=== PATIENT | male | born 1950 | race Caucasian/White ===

== ENCOUNTER → 2020-07-24 | Outpatient (CLI) | payer MEDICARE ==
--- NOTE | 2020-07-25 08:58 | RAD ---
EXAMINATION: XR EXAM OF ANKLE_LEFT 3V CLINICAL HISTORY: Follow-up left ankle pain status post ORIF TECHNIQUE: XR EXAM OF ANKLE_LEFT 3V Number of Images/Views: 3 COMPARISON: 07/09/2020, 06/12/2020 FINDINGS: Intact lateral plate and screw fixation hardware along the distal fibula. Intact medial plate and scr ew fixation hardware along the distal tibia with K wire through the medial malleolus. No evidence of acute hardware complication. Interval removal of all but one skin closure staple which remains along the lateral ankle. Decreased lucency along the lateral malleolus or fracture plane. Increased callus formation posterior ly which may be related to the lateral and posterior malleolar fractures. Slightly increased perioste al reaction along the medial malleolar fracture. Previously questioned tibiotalar joint body is not d efinitively visualized on this exam. No new acute fracture. Mildly increased soft tissue swelling. Remainder of the study otherwise unchanged. IMPRESSION: Healing trimalleolar fracture left ankle status post ORIF. No evidence of hardware complication. Electronically signed by: Edwin Freeman DO (07/25/2020 8:56 AM) [id number]
== END ==
LOC: DXRAD 14:35
PROVIDERS: ATTEND Physician Assistant
DX: S82.852A Displaced trimalleolar fracture of left lower leg, initial encounter for closed fracture (principal); X58.XXXA Exposure to other specified factors, initial encounter; Y93.89 Activity, other specified; Y92.89 Other specified places as the place of occurrence of the external cause; Y99.8 Other external cause status; Z98.890 Other specified postprocedural states
CPT/HCPCS: 73610

== ENCOUNTER 2021-03-27 17:18 | Emergency (ER) | payer MEDICARE ==
[~2021-03-27] VITALS: Ht 170.2 cm; Wt 65.0 kg
--- NOTE | 2021-03-27 17:26 | PHYS DOC ---
Adult General HPI HPI Patient is a 70-year-old male [facility]ation. Patient's last known normal was 1530 hrs. Patient was subsequently found by [facility] staff at 1430 hrs. and was not responding to verbal or painful stimulation prompting them to call EMS. On arrival, patient found to be hypertensive otherwise hemodynamically stable. He was not communicating with EMS and so, patient transferred to our facility emergently for code stroke. Little is known about patient besides fact that he is a noninsulin-dependent type II diabetic. It is unknown if he takes any blood thinners or other high risk/pertinent medications. Is unknown if he has ever had a stroke in the past. He is currently on the Covid waiting of the [facility]ci as he tested positive March 23. Paperwork accompanying patient from [facility] shows that he was admitted for left fibula fracture. He has past medical history of high blood pressure, hyperlipidemia, BPH, generalized muscle weakness, urinary retention and noninsulin-dependent type 2 diabetes. He is full CODE STATUS (ANDREW LAW DO) Review of Systems Review of Systems Unable to obtain due to mentation of patient (ANDREW LAW DO) Physical Exam Physical Exam Constitutional: Age-appropriate but patient is nonresponsive with GCS 5, ill-appearing HEENT: Head: Normocephalic and atraumatic. TMs clear, no hemotympanum Conjunctivae and EOM are normal. Pupils are equal, round, and reactive to light. Oropharynx is clear and moist. No hematomas or lacerations or abrasions to face or scalp OP clear, no blood, no malocclusion, dentition intact Nares clear, no nasal septal hematoma Midface stable Neck: C-spine midline nontender, no step-offs Cardiovascular: Tachycardic rate, regular rhythm and normal heart sounds. Pulmonary/Chest: Effort normal and breath sounds normal. No respiratory distress. No wheezes. CTA bilaterally Abdominal: Soft. Bowel sounds are normal. Pt exhibits no distension. There is no tenderness. Musculoskeletal: No bony tenderness to extremities, no deformities, full ROM extremities Chest wall stable Pelvis stable and non-tender No vertebral TTP and spine without stepoffs Patient does have soft surgical boot present to left lower extremity with underlying Farhad bandage wrapped from recent orthopedic surgery performed at Neurological: Pt is alert and but not oriented to person place or time which is not his baseline as patient typically performs all ADLs by himself Moving all extremities but nonpurposeful and does not follow commands, able to wiggle all fingers and toes Motor and sensory function grossly intact No obvious neurologic deficits Nonresponsive to verbal or painful stimuli Skin: Skin is warm and dry. No abrasions, no lacerations Psychiatric: Unable to fully assess due to acute mentation change (ANDREW LAW DO) Current Patient Data Vital Signs Vital Signs Date Time Temp Pulse Resp B/P (MAP) Pulse Ox O2 Delivery O2 Flow Rate FiO2 03/27/21 17:41 100 Ventilator 03/27/21 18:17 98.3 130 12 202/103 (136) Vital Signs Date Time Temp Pulse Resp B/P (MAP) Pulse Ox O2 Delivery O2 Flow Rate FiO2 03/27/21 20:39 84 26 102/59 (73) 100 Ventilator 03/27/21 18:17 98.3 Lab Results Laboratory Tests Test 03/27/21 17:32 03/27/21 17:43 03/27/21 17:56 03/27/21 18:30 Glucose (Fingerstick) 104 mg/dL White Blood Count 16.5 x10^3/uL Red Blood Count 5.43 x10^6/uL Hemoglobin 15.7 g/dL Hematocrit 49.3 % Mean Corpuscular Volume 91 fL Mean Corpuscular Hemoglobin 29 pg Mean Corpuscular Hemoglobin Concent 32 g/dL Red Cell Distribution Width 14.2 % Platelet Count 243 x10^3/uL Neutrophils (%) (Auto) 63 % Lymphocytes (%) (Auto) 24 % Monocytes (%) (Auto) 12 % Eosinophils (%) (Auto) 1 % Basophils (%) (Auto) 0 % Neutrophils # (Auto) 10.3 x10^3uL Lymphocytes # (Auto) 3.9 x10^3/uL Monocytes # (Auto) 2.0 x10^3/uL Eosinophils # (Auto) 0.2 x10^3/uL Basophils # (Auto) 0.0 x10^3/uL Segmented Neutrophils % 68 % Lymphocytes % 20 % Monocytes % 11 % Eosinophils % 1 % Platelet Estimate Adequate Prothrombin Time 10.4 SEC Prothromb Time International Ratio 1.0 Activated Partial Thromboplast Time 25 SEC D-Dimer (Gayle) 0.44 mg/L Sodium Level 144 mmol/L Potassium Level 8.5 mmol/L Chloride Level 106 mmol/L Carbon Dioxide Level 36 mmol/L Anion Gap 2 Blood Urea Nitrogen 17 mg/dL Creatinine 1.4 mg/dL Estimated GFR (Cockcroft-Gault) 49.8 BUN/Creatinine Ratio 12 Glucose Level 185 mg/dL Lactic Acid Level 9.4 mmol/L Calcium Level 11.0 mg/dL Total Bilirubin 0.3 mg/dL Aspartate Amino Transf (AST/SGOT) 15 U/L Alanine Aminotransferase (ALT/SGPT) 27 U/L Alkaline Phosphatase 167 U/L Ammonia 91 mcmol/L Troponin I High Sensitivity 9 ng/L Total Protein 8.4 g/dL Albumin 4.3 g/dL Albumin/Globulin Ratio 1.0 Urine Collection Type Unknown Urine Color Yellow Urine Clarity Hazy Urine pH 6.0 Urine Specific [place] 1.015 Urine Protein 100 mg/dl Urine Glucose (UA) Neg mg/dL Urine Ketones (Stick) Neg mg/dL Urine Blood Trace Urine Nitrite Pos Urine Bilirubin Neg Urine Urobilinogen Dipstick 0.2 mg/dL Urine Leukocyte Esterase Neg Urine RBC Rare /HPF Urine WBC 5-10 /HPF Urine Squamous Epithelial Cells None /LPF Urine Bacteria 0 /HPF Blood Gas pH 7.32 Blood Gas PCO2 32 mmHg Blood Gas PO2 476 mmHg Blood Gas HCO3 16 mmol/L Arterial Bld O2 Saturation (Calc) 100 % FiO2 100 % Test 03/27/21 18:42 Coronavirus (COVID-19)(PCR) Positive SARS-CoV-2 Antigen (Rapid) Positive Current Medications Medications (Trade) Dose Ordered Sig/Heath Route PRN Reason Start Time Stop Time Status Last Admin Dose Admin Lorazepam (Ativan Inj) 2 mg STK-MED ONCE .ROUTE 03/27/21 17:31 03/27/21 17:31 DC Propofol 100 ml @ As Directed STK-MED ONCE IV 03/27/21 17:40 03/27/21 17:41 DC Fosphenytoin Sodium 1300 mg/ Sodium Chloride 76 ml @ 304 mls/hr 1X ONCE IV 03/27/21 19:00 03/27/21 19:14 DC 03/27/21 19:25 Lorazepam (Ativan Inj) 2 mg 1X ONCE IVP 03/27/21 18:45 03/27/21 18:54 DC 03/27/21 17:32 Sodium Bicarbonate (Sodium Bicarb Adult 8.4% Syr) 50 meq 1X ONCE IV 03/27/21 18:45 03/27/21 18:54 DC 03/27/21 18:57 Calcium Chloride 1000 mg/Sodium Chloride 60 ml @ 120 mls/hr 1X ONCE IV 03/27/21 18:45 03/27/21 19:14 DC 03/27/21 19:25 Albuterol Sulfate (Ventolin Hfa Inhaler) 2 puff 1X ONCE INH 03/27/21 18:45 03/27/21 18:54 DC 03/27/21 18:57 Furosemide (Lasix) 40 mg 1X ONCE IVP 03/27/21 18:45 03/27/21 18:54 DC 03/27/21 18:57 Dextrose (Dextrose 50%-Water Syringe) 25 gm 1X ONCE IV 03/27/21 18:45 03/27/21 18:54 DC 03/27/21 18:57 Insulin Human Regular (HumuLIN R VIAL) 10 unit 1X ONCE IV 03/27/21 18:45 03/27/21 18:54 DC 03/27/21 18:45 Sodium Bicarbonate (Sodium Bicarb Adult 8.4% Syr) 50 meq STK-MED ONCE .ROUTE 03/27/21 18:53 03/27/21 18:53 DC Etomidate (Amidate) 40 mg STK-MED ONCE .ROUTE 03/27/21 19:00 03/27/21 22:41 DC Rocuronium Waves (Zemuron) 100 mg STK-MED ONCE .ROUTE 03/27/21 19:00 03/27/21 22:41 DC (ANDREW LAW DO) EKG EKG EKG ordered and interpreted by myself at 1747 hrs. as supraventricular tachycar ten at 139 bpm, unremarkable intervals, left axis deviation, no obvious ischemic findings, no STEMI (ANDREW LAW DO) Radiology/Procedures Radiology/Procedures [] EXAMINATION: Chest radiograph. VIEWS: 1 COMPARISON: None INDICATION:70 years, Male, intubation. FINDINGS: Normal cardiomediastinal silhouette. Bibasilar subsegmental atelectasis and/or scarring. Calcified granuloma in the left lung base. No focal consolidation. No pleural effusion or pneumothorax. No acute osseous process. Endotracheal tube tip locates approximately 6.2 cm proximal to the laura. Enteric tube tip and sidehole are seen within the gastric fundus. IMPRESSION: Endotracheal tube tip locates approximately 6.2 cm proximal to the laura. Electronically signed by: Lc Lorenzana MD (03/27/2021 6:09 PM) [facility] //////////////////////////////// Exam: CT head INDICATION: Altered mental status TECHNIQUE: Sequential axial images through the head were obtained without the administration of IV contrast. Exposure: One or more of the following in the visualized dose reduction techniques were utilized for this examination: 1. Automated exposure control 2. Adjustment of the MA and/or KV according to patient size 3. Use of iterative of reconstructive technique Comparisons: 06/12/2020 FINDINGS: No focal parenchymal lesion or hemorrhage is identified. There is no midline shift or sulcal effacement. Moderate patchy hypodensity in the periventricular white matter, similar to prior. Hypodensity in the right occipital lobe which is progressed when compared to the prior exam. No acute vascular territory infarction is identified. Nixon- white distinction is preserved. The ventricular system is within normal limits without compression hydrocephalus. The basal cisterns are well maintained. The visualized portions of the paranasal sinuses and mastoid air cells are well-pneumatized. No acute fractures. IMPRESSION: Hypodensity in the right occipital lobe which is developed since the prior exam in May however has a more chronic appearance. Extensive small vessel ischemic change which appears similar when compared to prior exam. No acute hemorrhage is seen. If there are persistent concerns for acute ischemia MRI would better evaluate. FOR INTERNAL CODING PURPOSES Critical result: Findings discussed with Dr. Leary at 03/27/2021 5:35 PM. RESULT CODE: (C) (ANDREW LAW DO) Radiology/Procedures [address] [address] IMAGING REPORT Signed PATIENT: VISHAL MARQUEZ ACCOUNT: [id number] : 1950 LOCATION: ER AGE: 70 SEX: M EXAM STATUS: REG ER ORD. PHYSICIAN: ANDREW LAW DO REASON: s/p intubation PROCEDURE: CHEST AP ONLY EXAMINATION: Chest radiograph. VIEWS: 1 COMPARISON: None INDICATION:70 years, Male, intubation. FINDINGS: Normal cardiomediastinal silhouette. Bibasilar subsegmental atelectasis and/or scarring. Calcified granuloma in the left lung base. No focal consolidation. No pleural effusion or pneumothorax. No acute osseous process. Endotracheal tube tip locates approximately 6.2 cm proximal to the laura. Enteric tube tip and sidehole are seen within the gastric fundus. IMPRESSION: Endotracheal tube tip locates approximately 6.2 cm proximal to the laura. Electronically signed by: Lc Lorenzana MD (03/27/2021 6:09 PM) [facility] DICTATED AND SIGNED BY: LC LORENZANA MD DATE: 03/27/211806 CC: ANDREW LAW DO; SARAH DIALLO MD; JIGAR TRUJILLO ~MTH0 [address] [place] [address] IMAGING REPORT Signed PATIENT: VISHAL MARQUEZ ACCOUNT: [id number] : 1950 LOCATION: ER AGE: 70 SEX: M EXAM STATUS: REG ER ORD. PHYSICIAN: ANDREW LAW DO REASON: ALTERED MENTAL STATUS, CODE STROKE PROCEDURE: CT CODE STROKE HEAD WO Exam: CT head INDICATION: Altered mental status TECHNIQUE: Sequential axial images through the head were obtained without the ad ministration of IV contrast. Exposure: One or more of the following in the visualized dose reduction techniques were utilized for this examination: 1. Automated exposure control 2. Adjustment of the MA and/or KV according to patient size 3. Use of iterative of reconstructive technique Comparisons: 06/12/2020 FINDINGS: No focal parenchymal lesion or hemorrhage is identified. There is no midline shift or sulcal effacement. Moderate patchy hypodensity in the periventricular white matter, similar to prio r. Hypodensity in the right occipital lobe which is progressed when compared to the prior exam. No acute vascular territory infarction is identified. Nixon-white distinction is preserved. The ventricular system is within normal limits without compression h ydrocephalus. The basal cisterns are well maintained. The visualized portions of the paranasal sinuses and mastoid air cells are well- pneumatized. No acute fractures. IMPRESSION: Hypodensity in the right occipital lobe which is developed since the prior exam in May however has a more chronic appearance. Extensive small vessel ischemic change which appears similar when compared to prior exam. No acute hemorrhage is seen. If there are persistent concerns for acute ischemia MRI would better evaluate. FOR INTERNAL CODING PURPOSES Critical result: Findings discussed with Dr. Leary at 03/27/2021 5:35 PM. RESULT CODE: (C) Electronically signed by: Toribio Fisher MD (03/27/2021 5:37 PM) [facility] DICTATED AND SIGNED BY: TORIBIO FISHER MD DATE: 03/27/211724 CC: ANDREW LAW DO; JIG[facility] TRUJILLO ~MTH0 0 (SARAH DIALLO MD) Heart Score C/O Chest Pain: N/A Risk Factors: Risk Factors: DM, Current or recent (<one month) smoker, HTN, HLP, family history of CAD, obesity. Risk Scores: Risk Factors: DM, Current or recent (<one month) smoker, HTN, HLP, family history of CAD, obesity. (ANDREW LAW DO) HEART Score for Chest Pain: HEART Score for Chest Pain Response (Comments) Value History Highly Suspicious [address] Depression 2 Age > 65 2 Risk Factors 1 or 2 Risk Factors 1 Troponin < Normal Limit 0 Total 7 Course & Med Decision Making Course & Med Decision Making Code stroke initiated on immediate arrival [id number] glucose unremarkable. NIH stroke scale unobtainable due to acute mentation of patient. GCS 5 (e4, v1, m1) Left nasopharyngeal airway placed and CT head obtained that was grossly unremarkable for any acute hemorrhagic stroke Patient brought to isolation room where he was found to be actively seizing, this was aborted with 2 mg IV Ativan Patient intubated due to GCS/failure to protect airway with fear of impending respiratory collapse Initial ER work-up started with labs obtained. At this time in care, my shift was ending. Comprehensive signout given to oncoming physician who will assume all care of patient in ER setting going forward Critical Care Time This patient required critical care. Due to the fact that the patient required a significant amount of one on one physician - patient contact time, ordering and review of studies, arranging urgent treatment with development of a management plan, evaluation of patients response to treatment with frequent reassessments, and discussions with other providers this patient required 30 minutes of critical care time. Critical care time was indicated due to the inherent instability and/or potential for instability in this patient. The critical care time that is allocated to this patient is above and beyond any time spent on any other billable procedures performed on this patient. (ANDREW LAW DO) Course & Med Decision Making See Dr. Law notes for detail prior shift change. Discussed presentation, testing and treatment plan with transfer. Pt. accepted at - under Dr. Atif Rivera Critical care time 90 minutes management of vent interpretation labs and treatment of acute hyperkalemia. Note some labs pending at time of transfer. Films sent to for their review. Impression: 1. Acute mental status change 2. Recent right lower leg surgical orthopedic repair at -and transfer to [facility] for rehab 11/13/20 3. COVID + 03/23/21 4. Acute Hyperkalemia 8.5 5. Renal insufficiency creatinine 1.4 6. Tonic-clonic seizure 7. Elevated lactic acid 9.4 8. Diabetes glucose 185 9. Leukocytosis 16.5 with 68 segs 10.Elevated Alk Phos 11.Elevated Ammonia level 91 (SARAH DIALLO MD) Dragon Disclaimer Dragon Disclaimer This electronic medical record was generated, in whole or in part, using a voice recognition dictation system. (ANDREW LAW DO) Intubation Progress The patient required endotracheal intubation due to failure to protect airway and overall GCS 5 Consent was unobtainable due to patient presentation, lack of patient capacity, and no known POA or other family member present The patient was given 25 etomidate and 80 rocuronium Once patient was adequately sedated and paralyzed, a glidoscope 3 blade was used to directly visualize the cords Using this direct visualization, a 7.5 endotracheal tube was then passed easily through the cords The tube was inserted at 22 centimeters at the lip There is excellent color change on end-tidal CO2 monitor. Patient was easily and adequately ventilated. There was excellent breath sounds bilaterally with no breath sounds heard over the epigastrium. The tube was secured in standard fashion. The patient tolerated procedure well with no observed nor reported complications Post intubation chest x-ray demonstrates excellent endotracheal tube placement (ANDREW LAW DO) Departure Departure: Impression: Primary Impression: Acute respiratory failure due to COVID-19 Additional Impressions: Hyperkalemia Seizure UTI (urinary tract infection) Disposition: 02 [facility] Condition: CRITICAL Referrals: JIGAR TRUJILLO (PCP) [place]ega Disclaimer This chart was dictated in whole or in part using Voice Recognition software in a busy, high-work load, and often noisy Emergency Department environment. It may contain unintended and wholly unrecognized errors or omissions. (SARAH DIALLO MD) Dragon Disclaimer This chart was dictated in whole or in part using Voice Recognition software in a busy, high-work load, and often noisy Emergency Department environment. It may contain unintended and wholly unrecognized errors or omissions. (ANDREW LAW DO) Problem Qualifiers ANDREW LAW DO Mar 27, 2021 17:26 SARAH DIALLO MD Mar 28, 2021 05:02
--- NOTE | 2021-03-27 17:39 | RAD ---
Exam: CT head INDICATION: Altered mental status TECHNIQUE: Sequential axial images through the head were obtained without the administration of IV co ntrast. Exposure: One or more of the following in the visualized dose reduction techniques were utilized for this examination: 1. Automated exposure control 2. Adjustment of the MA and/or KV according to patient size 3. Use of iterative of reconstructive technique Comparisons: 06/12/2020 FINDINGS: No focal parenchymal lesion or hemorrhage is identified. There is no midline shift or sulcal effaceme nt. Moderate patchy hypodensity in the periventricular white matter, similar to prior. Hypodensity in the right occipital lobe which is progressed when compared to the prior exam. No acute vascular territor y infarction is identified. Nixon-white distinction is preserved. The ventricular system is within normal limits without compression hydrocephalus. The basal cisterns are well maintained. The visualized portions of the paranasal sinuses and mastoid air cells are well-pneumatized. No acute fractures. IMPRESSION: Hypodensity in the right occipital lobe which is developed since the prior exam in May however cook s a more chronic appearance. Extensive small vessel ischemic change which appears similar when compar ed to prior exam. No acute hemorrhage is seen. If there are persistent concerns for acute ischemia MR I would better evaluate. FOR INTERNAL CODING PURPOSES Critical result: Findings discussed with Dr. Leary at 03/27/2021 5:35 PM. RESULT CODE: (C) Electronically signed by: Toribio Flynn MD (03/27/2021 5:37 PM) [facility]
[2021-03-27] MEDS ORDERED: PROPOFOL 100 ML IV ONE (17:40)
--- NOTE | 2021-03-27 18:11 | RAD ---
EXAMINATION: Chest radiograph. VIEWS: 1 COMPARISON: None INDICATION:70 years, Male, intubation. FINDINGS: Normal cardiomediastinal silhouette. Bibasilar subsegmental atelectasis and/or scarring. Calcified gr anuloma in the left lung base. No focal consolidation. No pleural effusion or pneumothorax. No acute osseous process. Endotracheal tube tip locates approximately 6.2 cm proximal to the laura. Enteric t ube tip and sidehole are seen within the gastric fundus. IMPRESSION: Endotracheal tube tip locates approximately 6.2 cm proximal to the laura. Electronically signed by: Dia Lorenzana MD (03/27/2021 6:09 PM) [facility]
--- NOTE | 2021-03-27 18:12 | EKG ---
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
[2021-03-27 18:15] LABS: BASO % 0 % (0-3); EOS # 0.2 x10^3/uL (0.0-0.7); EOS % 1 % (0-3); HEMATOCRIT 49.3 % (39.0-53.0); HEMOGLOBIN 15.7 g/dL (13.0-17.5); LYMPH # 3.9 x10^3/uL (1.0-4.8); LYMPH % 24 % (24-48); MEAN CORPUSCULAR HEMOGLOBIN 29 pg (25-35); MEAN CORPUSCULAR HGB CONC 32 g/dL (31-37); MEAN CORPUSCULAR VOLUME 91 fL (79-100); MONO % 12 % (0-9); NEUT # 10.3 x10^3uL (1.8-7.7); NEUT % 63 % (31-73); PLATELET COUNT 243 x10^3/uL (140-400); RED BLOOD COUNT 5.43 x10^6/uL (4.30-5.70); RED CELL DISTRIBUTION WIDTH 14.2 % (11.5-14.5); WHITE BLOOD COUNT 16.5 x10^3/uL (4.0-11.0)
[2021-03-27 18:34] LABS: ALBUMIN 4.3 g/dL (3.4-5.0); CREATININE 1.4 mg/dL (0.7-1.3); GFR 49.8; TOTAL BILIRUBIN 0.3 mg/dL (0.2-1.0); TOTAL PROTEIN 8.4 g/dL (6.4-8.2)
[2021-03-27 18:38] LABS: POTASSIUM 8.5 mmol/L (3.5-5.1)
[2021-03-27 18:42] LABS: CLARITY,URINE HAZY; COLOR,URINE YELLOW
[2021-03-27 18:43] LABS: BACTERIA,URINE 0 /HPF (0-FEW); BILIRUBIN,URINE NEG (NEG); GLUCOSE,URINE NEG (NEG); NITRITE,URINE POS (NEG); RBC,URINE RARE /HPF (0-2); UROBILINOGEN,URINE 0.2 mg/dL (0.2 mg/dL)
[2021-03-27] MEDS ORDERED: DEXTROSE 50% 25 GM / 50ML DISP.SYRIN. IV ONE (18:45)
[2021-03-27] MEDS ORDERED: FUROSEMIDE 40 MG/4 ML VIAL IVP ONE (18:45)
[2021-03-27] MEDS ORDERED: CALCIUM CHLORIDE 1,000 MG in IV NORMAL SALINE 50ML 50 ML IV ONE (18:45)
[2021-03-27] MEDS ORDERED: ALBUTEROL SULFATE 8GM INHALER. INH ONE (18:45)
[2021-03-27] MEDS ORDERED: INSULIN REGULAR 100 UNIT/ML 3ML VIAL. IV ONE (18:45)
[2021-03-27] MEDS ORDERED: SODIUM BICARB ADULT 8.4% 50 MEQ/50 ML DISP.SYRIN. IV ONE (18:45)
[2021-03-27 18:53] LABS: % EOS 1 % (0-5); % LYMPHS 20 % (24-48); % MONOS 11 % (0-10); % SEGS 68 % (35-66)
[2021-03-27] MEDS ORDERED: SODIUM BICARB ADULT 8.4% 50 MEQ/50 ML DISP.SYRIN. ONE (18:53)
[2021-03-27 18:54] LABS: PLT ESTIMATE ADEQUATE (ADEQUATE)
[2021-03-27] MEDS ORDERED: FOSPHENYTOIN IV ONE (19:00)
[2021-03-27] MEDS ORDERED: ROCURONIUM 50 MG/5 ML VIAL. ONE (19:00)
[2021-03-27] MEDS ORDERED: NORMAL SALINE IV ONE (19:00)
[2021-03-27] MEDS ORDERED: ETOMIDATE 40 MG/20 ML VIAL. ONE (19:00)
[2021-03-27 19:13] LABS: BGAS PH 7.32 (7.35-7.46)
[2021-03-27 20:39] VITALS: BP 102/59
--- NOTE | 2021-04-01 14:12 | NUR ---
[facility] Rehana REYES, notified of Carbapenem-intermediate PSA urine culture.
== END 2021-03-27 21:13 | disposition short-term general hospital (02) ==
LOC: ER 17:18
DX: U07.1 COVID-19 (principal); J96.00 Acute respiratory failure, unspecified whether with hypoxia or hypercapnia; E87.5 Hyperkalemia; R56.9 Unspecified convulsions; N39.0 Urinary tract infection, site not specified; R41.82 Altered mental status, unspecified; Z87.891 Personal history of nicotine dependence
CPT/HCPCS: 31500; 36415; 70450; 71045; 80053; 81001; 82140; 82803; 82947; 83605; 84484; 85007; 85025; 85379; 85610; 85730; 87040; 87086; 87426; 93005; 94640; 96365; 96368; 96375; 99291; 99292; C9803; J1815; J1940; J2060; Q2009; U0003; 94664